=== PATIENT | male | born 1930 | race African-American/Black ===

== ENCOUNTER 2021-02-14 12:09 | Observation (INO) ==
[2021-02-14] MEDS ORDERED: ASPIRIN 325 MG TABLET PO STA (13:12)
[2021-02-14 13:23] LABS: Basophils % 0.5 % (0.0-0.8); Eosinophils # 0.2 10*3/uL (0.0-0.87); Eosinophils % 1.9 % (0.00-10.9); Hematocrit 45.8 VOL% (42.0-52.0); Hemoglobin 14.5 GM/DL (14.0-18.0); Immature Granulocytes % 0.4 %; Immature Granulocytes Absolute 0.03 #; Lymphocytes # 1.9 10*3/uL (1.4-4.0); Lymphocytes % 24.2 % (21.2-54.2); Mean Corpuscular HGB Conc 31.7 GM/DL (32-36); Mean Corpuscular Volume 91.6 FL (87-102); Mean Platelet Volume 10.7 FL (9.6-12.0); Monocytes % 9.7 % (1.7-12.7); Neutrophils % 63.3 % (38.7-73.9); Platelet Count 255 T/CUMM (130-400); Red Cell Distribution Width 14.1 % (9.3-17.3); White Blood Count 7.7 T/CUMM (4-12)
[2021-02-14 13:32] LABS: PT Patient Result 10.9 SECS (10.5-12.0); Partial Thromboplastin Time 26.5 SECS (23.9-33.8)
[2021-02-14 13:35] LABS: Albumin 3.8 G/DL (3.4-5.0); Bilirubin,Total 0.5 MG/DL (0.2-1.0); Calcium 10.2 MG/DL (8.5-10.1); Osmolality,Calculated 286.3 MOS/KG (273-304); Potassium 4.5 MMOL/L (3.5-5.1); Total Protein 7.7 G/DL (6.4-8.2)
[2021-02-14] MEDS ORDERED: ONDANSETRON 4 MG/2 ML VIAL IV STA (15:11)
[2021-02-14] MEDS ORDERED: MORPHINE 4 MG/1 ML VIAL IV STA (15:11)
[2021-02-14] MEDS ORDERED: ZALEPLON 5 MG CAPSULE PO PRN (15:42)
[2021-02-14] MEDS ORDERED: DEXTROSE 50% 25 GM/50 ML VIAL IV PRN (15:42)
[2021-02-14] MEDS ORDERED: GLUCAGON 1 MG VIAL IM PRN (15:42)
[2021-02-14] MEDS ORDERED: ACETAMINOPHEN 325 MG TABLET PO PRN (15:42)
[2021-02-14] MEDS ORDERED: ONDANSETRON 4 MG/2 ML VIAL IV PRN (15:42)
[2021-02-14] MEDS ORDERED: hydrALAZINE 20 MG/1 ML VIAL IV PRN (16:29)
[2021-02-14] MEDS: INSULIN REGULAR 100 UNIT/ML SUBCUT SCH ×2 (17:36→20:48)
[2021-02-14] MEDS: ACETAMINOPHEN 325 MG TABLET PO SCH (20:49)
[2021-02-14] MEDS ORDERED: FINASTERIDE 5 MG TABLET PO SCH (21:00)
[2021-02-14] MEDS ORDERED: GABAPENTIN 100 MG CAPSULE PO SCH (21:00)
[2021-02-14] MEDS ORDERED: ATORVASTATIN 40 MG TABLET PO SCH (21:00)
[2021-02-14] MEDS ORDERED: ENOXAPARIN 40 MG/0.4 ML SYRINGE SUBCUT SCH (21:00)
[2021-02-15 05:37] LABS: Risk Ratio 2.95; VLDL CHOLESTEROL 6.8 MG/DL
[2021-02-15] MEDS: INSULIN REGULAR 100 UNIT/ML SUBCUT SCH ×2 (08:03→12:20)
[2021-02-15] MEDS: ACETAMINOPHEN 325 MG TABLET PO SCH ×2 (08:48→15:04)
[2021-02-15] MEDS ORDERED: FUROSEMIDE 20 MG TABLET PO SCH (09:00)
[2021-02-15] MEDS ORDERED: PANTOPRAZOLE 40 MG TABLET PO SCH (09:00)
[2021-02-15] MEDS ORDERED: allopurinoL 300 MG TABLET PO SCH (09:00)
[2021-02-15] MEDS ORDERED: ASPIRIN EC 325 MG TABLET PO SCH (09:00)
[2021-02-15] MEDS ORDERED: KETOROLAC 30 MG/1 ML VIAL IV ONE (10:55)
[2021-02-15 12:09] VITALS: BP 151/63
[2021-02-15] MEDS ORDERED: GABAPENTIN 100 MG CAPSULE PO SCH (15:00)
[2021-02-15] MEDS ORDERED: CEFDINIR 300 MG CAPSULE PO SCH (21:00)
== END 2021-02-15 15:34 | disposition home or self-care (01) ==
LOC: N.ED 12:09 → N.EDINP 12:09 → N.4E 17:49
PROVIDERS: ADMIT Internal Medicine; ATTEND Internal Medicine